=== PATIENT | female | born 1990 | race American Indian/Alaskan Native ===

== ENCOUNTER 2018-01-31 16:38 | Observation (INO) | payer MEDICAID ==
[2018-01-31 17:03] VITALS: BP 101/60
== END 2018-01-31 18:00 | disposition home or self-care (01) ==
LOC: INTOOBSV 16:38 → LD 16:38
PROVIDERS: ADMIT Obstetrics & Gynecology; ATTEND Obstetrics & Gynecology
DX: O42.913 Preterm premature rupture of membranes, unspecified as to length of time between rupture and onset of labor, third trimester (principal); Z3A.32 32 weeks gestation of pregnancy
CPT/HCPCS: 59025; G0378; G0379